=== PATIENT | female | born 1930 | race Caucasian/White ===

== ENCOUNTER 2016-09-20 13:19 | Observation (INO) | payer MEDICARE ==
[2016-09-20] VITALS (8 sets, daily range): BP systolic 107–146; BP diastolic 57–79; PULSE 46–65; RESP 15–24; O2SAT 97–100
[~2016-09-20] VITALS: Ht 165.1 cm; Wt 60.2 kg
--- NOTE | 2016-09-20 13:38 | ED.REPORT ---
HPI-Chest Pain 40 and Over Date of Service Sep 20, 2016 ED Provider: Alexis Nowak MD Pt is an 86 y/o female w/ a hx of paroxysmal a-fib, HTN, presenting to the ED with her son c/o 2 episodes of dizziness/lightheadedness which first began 1 week ago. 1 week ago she had an episode of near-syncope lasting 3 hours. Today, she experienced the same thing lasting a few hours and called her son to bring her to the ED. Her symptoms are exacerbated by standing up and result in near- syncope. She c/o associated fatigue, nausea. Pt denies SOB, fever, vomiting, abdominal pain, CP. She has been bradycardic previously after a hip surgery. She is on Lisinopril and Diltiazem. She is not on anticoagulants. Cardiology: [facility] Nursing Notes Stated Complaint: DIZZY/NAUSEA Chief Complaint: Dysrhythmia/Cardiac Nursing Notes Reviewed: Yes Allergies: Coded Allergies: No Known Allergies (Unverified , 09/20/16) Scheduled ([Curamin]) 1 TAB PO DAILY ([Shot In Eye]) 1 DOSE LEFT_EYE [id number] Aspirin (Aspirin) 325 Mg Tablet 325 MG PO DAILY Atorvastatin Calcium (Atorvastatin Calcium) 10 Mg Tablet 5 MG PO HS Bimatoprost (Lumigan) 45 Drop/2.5 Ml Ophsoln 1 DROP BOTH_EYES HS Cholecalciferol (Vitamin D3) (Vitamin D3) 400 Unit Tablet 400 UNIT PO DAILY Diltiazem ER (Cartia XT) 300 Mg Cap.er.24h 300 MG PO HS Flaxseed/Omega3,6,9/Fatty Acid (Flax Seed Oil 1,300 mg Softgel) 1 Each Capsule 1 EACH PO DAILY Levothyroxine (Levothyroxine) 125 Mcg Tablet 125 MCG PO BEFORE BREAKFAST Lisinopril (Lisinopril) 20 Mg Tablet 20 MG PO DAILY Magnesium Oxide (Magnesium Oxide) 400 Mg Tablet 400 MG PO DAILY [place]-3/Dha/Epa/Fish Oil (Fish Oil 1,000 mg Softgel) 1 Each Capsule 1 EACH PO DAILY Omeprazole (Omeprazole) 20 Mg Capsule.dr 20 MG PO DAILY BEFORE DINNER Oxybutynin Chloride ER (Oxybutynin Chloride ER) 10 Mg Tab.er.24 10 MG PO DAILY Pyridoxine (Vitamin B-6) 50 Mg Tablet 1 TAB PO DAILY Timolol Maleate (Timolol Maleate) 5 Ml Drops 1 DROP RIGHT_EYE QAM Scheduled PRN Polyethylene Glycol 3350 (Miralax) 17 Gm Powd.pack 17 GM PO DAILY PRN PRN For Constipation Sennosides (Senna) 8.6 Mg Tablet 8.6-17.2 MG PO HS PRN PRN For Constipation Sumatriptan (Imitrex) 25 Mg Tablet 100 MG PO DAILY PRN PRN MIGRAINE General Time Seen by MD: 13:37 Chief Complaint Other (lightheadedness) Hx Obtained From: Patient Arrived By: Walk-in Sudden in Onset?: No Onset Occurred: 1 week ago Symptom Duration: Intermittent Severity: Current: No pain currently Severity: Maximum: No pain Past Medical History Past Medical History Notes: Cardiology: [place] Past Medical History Hypertension Paroxysmal atrial fibrillation - not on anticoagulants GERD Arthritis in ankles and hips Past Surgical History R hip Left knee Appendectomy Smoking History Never Smoker Social History Alcohol Use: Denies alcohol use Ambulatory Status Independent Review of Systems Constitutional: Reports: Fatigue, Denies: Chills, Fever Respiratory: Denies: Shortness of breath Cardiovascular: Denies: Chest pain GI: Reports: Nausea, Denies: Abdominal pain, Vomiting Neurologic: Reports: Dizziness, Lightheaded Complete sys rev & neg: except as marked. Physical Exam Initial Vital Signs Vital Signs (First) Date Time Temp Pulse Resp B/P Pulse Ox O2 Delivery O2 Flow Rate FiO2 09/20/16 13:27 36.3 46 16 122/59 99 Room Air Initial VS: Reviewed, Vital signs abnormal Head / Eyes: Atraumatic, Normocephalic ENT: Mucous membranes moist, Conjunctiva normal, No scleral icterus Neck: Supple, Full range of motion Extremities: Vascular intact, Neuro intact, No swelling Skin: Warm, Dry, No cyanosis Neurologic: Alert, Oriented, Nonfocal Psychiatric: Mood/affect normal, Behavior normal, Normal thought content General/Constitutional: Awake, Alert, No acute distress, Cooperative, Not toxic appearing Respiratory / Chest: Breath sounds NL, Breath sounds = bilat, No respiratory distress, No rales, No rhonchi, No wheezing Cardiovascular: Heart sounds NL, No murmurs Heart Rate / Rhythm: Positive: Bradycardia (intermittently bradycardic into 40s ), Irregular rhythm Abdomen: Atraumatic, Soft, Non-tender Interpretation & Diagnostics Lab Results Interpretation Result Diagram: 09/20/16 1347 09/20/16 1347 Test 09/20/16 13:47 09/20/16 14:00 White Blood Count 9.7th/mm3 (3.8-10.1) Red Blood Count 4.62mil/mm3 (3.90-5.20) Hemoglobin 14.1g/dL (12.0-15.6) Hematocrit 41.5% (35.0-46.0) Mean Corpuscular Volume 89.8fL (81-100) Mean Corpuscular Hemoglobin 30.5pg (27.0-35.0) Mean Corpuscular Hemoglobin Concent 34.0% (32.0-37.0) Red Cell Distribution Width 12.9% (12.3-15.4) Platelet Count 256bil/L (150-400) Neutrophils (%) (Auto) 64.1% (40-74) Lymphocytes (%) (Auto) 24.7% (14-46) Monocytes (%) (Auto) 8.3% (4-12) Eosinophils (%) (Auto) 2.4% (0-5) Basophils (%) (Auto) 0.2% (0-3) Sodium Level 138mEq/L (134-144) Potassium Level 5.2mEq/L (3.5-5.2) Chloride Level 103mEq/L (97-108) Carbon Dioxide Level 16mmol/L (18-29) Blood Urea Nitrogen 21mg/dL (8-27) Creatinine 1.03mg/dL (0.57-1.00) Estimat Glomerular Filtration Rate 73mL/min (>59) Glucose Level 116mg/dL (60-99) Calcium Level 9.2mg/dL (8.5-10.1) Magnesium Level 2.0mg/dL (1.6-2.6) Total Bilirubin 0.3mg/dL (0.0-1.2) Aspartate Amino Transf (AST/SGOT) 20U/L (0-50) Alanine Aminotransferase (ALT/SGPT) 13U/L (0-32) Alkaline Phosphatase 85U/L (25-165) Troponin T < 0.010ug/L (0.0-0.011) Pro-B-Type Natriuretic Peptide 752.9pg/mL (0-738) Total Protein 7.5g/dL (6.4-8.4) Albumin 4.0g/dL (3.4-5.0) Hold Wong Top Tube Received (Received) Hold Purple Top Tube Received (Received) Hold [place] Top Tube Received (Received) ECG Interpretation ECG Interpretation: Sinus rhythm rate 66 PVCs T wave inversions isolated in V1 Time: 13:41 Interpreted by: ED physician Normal ECG Interpretation: No acute ischemic changes X-Ray Chest Interpretation Chest Xray Interpretation: IMPRESSION: No acute cardiopulmonary disease. Dictated by: Donte Stone M.D. on 09/20/2016 at 14:17 Approved by: Donte Stone M.D. on 09/20/2016 at 14:18 View: Portable, 1 view Interpretation / Wet Read by: Interpret - Radiologist CT Head Interpretation IMPRESSION: Mild microvascular atherosclerotic change in the deep white matter each hemisphere, expected for age, no source of current symptoms is seen. Dictated by: Jere Elder M.D. on 09/20/2016 at 16:38 Approved by: Jere Elder M.D. on 09/20/2016 at 16:39 Study: Head CT no contrast Interpretation / Wet Read by: Interpret - Radiologist Re-Eval/Medical Decision Med Decision/Clinical Course 86-year-old female history of paroxysmal atrial fibrillation on diltiazem thinning with intermittent dizziness and fatigue over the past week. Reports several hours of dizziness and fatigue 1 week ago. This recurred again today for several hours. On arrival she was bradycardic in the 30s and 40s at times up to the 50s. She was given 1 dose of atropine with improvement of heart rate into the 50s and 60s with minimal improvement symptoms. EKG sinus bradycardia. Blood pressure stable. Troponins negative. Discussed patient with cardiology Dr. Cordoba who recommended discontinuing diltiazem and disposition based on patient's comfort level. Patient requested be admitted to the hospital. She will be admitted with holding diltiazem and monitoring. Time of Eval: 15:13 Re-Evaluation/Progress Note: Pt rechecked after atropine. Not feeling better. HR improved. Discussed the national sales's recommendations. She would like to be admitted. Consultation #1: Referral / Consult Name: Jone Cordoba MD Consulted With: Cardiology Call Returned at: 14:58 Structures Mechanic: Agrees with eval, Agrees with plan Note: Recommends OK to admit for obs withholding dilt if patient wants to go home then that's OK. Would stop dilt if she was discharged. Consultation #2: Referral / Consult Name: Moshe Edwards MD Consulted With: Hospitalist Call Returned at: 15:51 Structures Mechanic: Will see patient, Agrees with eval, Agrees with plan, Accepts admit Counseled Regarding: Diagnosis, Lab results, Need for admission Discharge & Departure Primary Impression: Symptomatic bradycardia Additional Impression: Dizziness Disposition: ADMITTED TO HOSPITAL Discharge Condition All VS Reviewed: Yes Condition: Stable Referrals: Marla Schaefer DO (PCP) Jone Cordoba MD Crit Care Except Billable Proc Time Spent: 30-74 minutes Services Performed: Patient management by me, Time spent at bedside, Reviewing test results, Reviewing imaging, Discussing patient care, Documentation in record, Time with fam/surrogate Critical Care Notes: 30 minutes Scribe Attestation Portions of this note were transcribed by Mu Uribe. I, Dr. Nowak personally performed the history, physical exam and medical decision-making; I reviewed and confirmed the accuracy of the information in the transcribed note. copies to: Marla Schaefer DO; Jone Cordoba MD, Ben M MD Sep 20, 2016 13:38 MU URIBE Sep 20, 2016 13:41
[2016-09-20 14:01] LABS: BASOPHILS % (AUTO) 0.2 % (0-3); EOSINOPHILS % (AUTO) 2.4 % (0-5); MONOCYTES % (AUTO) 8.3 % (4-12); Mean Corpuscular Hemoglobin 30.5 pg (27.0-35.0); Mean Corpuscular Volume 89.8 fL (81-100); NEUTROPHILS % (AUTO) 64.1 % (40-74); Platelet Count 256 bil/L (150-400)
[2016-09-20] MEDS ORDERED: Atropine 1 mg/10 mL (Code) Syringe IVPUSH PRN (14:15)
--- NOTE | 2016-09-20 14:19 | DRSVH ---
PROCEDURE: X-RAY CHEST ONE VIEW, PORTABLE ([id number]) INDICATIONS: 86 year-old female with chest pain and dizziness. TECHNIQUE: One view of the chest was acquired. COMPARISON: [facility], CR, XR CHEST 1VW, 02/18/2015, 10:10. FINDINGS: Surgical changes and devices: None. Lungs and pleura: No pleural effusions or pneumothorax. Lungs are clear. Mediastinum: Mediastinal contours appear normal. Heart size is normal. There is aortic atheroscler osis. Bones and chest wall: No suspicious bony lesions. Overlying soft tissues appear unremarkable. IMPRESSION: No acute cardiopulmonary disease. Dictated by: Donte Stone M.D. on 09/20/2016 at 14:17 Approved by: Donte Stone M.D. on 09/20/2016 at 14:18
[2016-09-20 14:29] LABS: TROPONIN T < 0.010 ug/L (0.0-0.011)
[2016-09-20] MEDS ORDERED: 0.9% Sodium Chloride 500 ML IV ONE (14:55)
[2016-09-20] MEDS ORDERED: DILT300C25 PO (15:54)
[2016-09-20] MEDS ORDERED: [UNRECOGNIZED DRUG - REMARK] LEFT_EYE (15:54)
[2016-09-20] MEDS ORDERED: MAGN400T4 PO (15:54)
[2016-09-20] MEDS ORDERED: PYR50 PO (15:54)
[2016-09-20] MEDS ORDERED: CHOL400T PO (15:54)
[2016-09-20] MEDS ORDERED: LISI-567 PO (15:54)
[2016-09-20] MEDS ORDERED: OMEG-38 PO (15:54)
[2016-09-20] MEDS ORDERED: FLAX1CAP4 PO (15:54)
[2016-09-20] MEDS ORDERED: OXYB10TA PO (15:54)
[2016-09-20] MEDS ORDERED: OMEP20CA11 PO (15:54)
[2016-09-20] MEDS ORDERED: SENN-133 PO (15:54)
[2016-09-20] MEDS ORDERED: LEVO125T6 PO (15:54)
[2016-09-20] MEDS ORDERED: ATOR10TA66 PO (15:54)
[2016-09-20] MEDS ORDERED: POLY17PO6 PO (15:54)
[2016-09-20] MEDS ORDERED: CURAMIN PO (15:54)
[2016-09-20] MEDS ORDERED: TIMO5DRO5 RIGHT_EYE (15:54)
[2016-09-20] MEDS ORDERED: ASPI325T32 PO (15:54)
[2016-09-20] MEDS ORDERED: IMI25 PO (15:54)
[2016-09-20] MEDS ORDERED: BIMA2.5D5 BOTH_EYES (15:54)
[2016-09-20] MEDS ORDERED: Ondansetron 2 mg/mL 2 mL Inj IVPUSH PRN ×2 (16:05→16:25)
[2016-09-20] MEDS ORDERED: Alum-Mag Hydrox-Simeth 30 mL Suspension PO PRN ×2 (16:05→16:25)
[2016-09-20] MEDS ORDERED: 0.9% Sodium Chloride 1,000 ML IV SCH (16:21)
[2016-09-20] MEDS: Timolol 0.5% 5 mL Ophthalmic Solution RIGHT_EYE SCH (16:25)
[2016-09-20] MEDS ORDERED: Polyethylene Glycol (PEG) 17 Gm Powder PO PRN (16:25)
--- NOTE | 2016-09-20 16:40 | DRSVH ---
PROCEDURE: CT BRAIN WITHOUT CONTRAST ([id number]) INDICATIONS: dizziness TECHNIQUE: Noncontrast 4.5 mm thick angled axial sections acquired from the foramen magnum to the vertex, with c oronal reformats. COMPARISON: [facility], CT, BRAIN W/O CONTRAST, 11/03/2008, 11:39. FINDINGS: Image quality: Excellent. CSF spaces: Basal cisterns are patent. No extra-axial fluid collections. The ventricles are symmet tyshawn in size and shape. Brain: No intracranial bleeds or masses. There is cerebral volume loss for age, with resultant vent ricular and sulcal prominence. There are periventricular and deep white matter chronic small vessel ischemic changes. There is intracranial internal carotid artery atherosclerosis. Skull and face: Calvarium and visualized facial bones appear intact, without suspicious lesions. Sinuses: Visualized sinuses and mastoids are clear. IMPRESSION: Mild microvascular atherosclerotic change in the deep white matter each hemisphere, expec dougie for age, no source of current symptoms is seen. Dictated by: Jere Elder M.D. on 09/20/2016 at 16:38 Approved by: Jere Elder M.D. on 09/20/2016 at 16:39
--- NOTE | 2016-09-20 16:49 | PCM.HPMED ---
Subjective Date of Service Sep 20, 2016 Primary Provider: Admitting Physician: Moshe Edwards MD Primary Care Physician: Clinic,[facility] Residency Attending Physician: Moshe Edwards MD Admit Status: From the Emergency Department, 23-Hour Observation, PSYCHIATRIC Telemetry Chief Complaint: Lightheaded today and about a week ago. History of Present Illness: This is a pleasant 86-year-old female with history of paroxysmal atrial fibrillation on chronic aspirin and diltiazem 300 mg a day for rate control. She developed a episode of being lightheaded about a week ago. This was when she was outside and it was somewhat hot. She became lightheaded and thought she might pass out or back into the house and rested and felt better. She had no other problems rest of the week and then today was outside again for the first time in about a week using the weedeater. After about 15 minutes and the son she became very lightheaded and dizzy and again thought she might pass out. She would also lay down but continued to feel poorly. She has descended to the emergency department. She denies any chest pain. No recent URI symptoms including rhinorrhea cough or sore throat. No orthopnea or edema. No discernible palpitations. In the emergency department she was found to have atrial fibrillation with episodes of bradycardia into the 30s and 40s. She has no history of known rate control issues or bradycardia. She does have a history of upper tension but has not had headaches recently. She denies any calf pain or swelling. No diarrhea or blood per rectum. She was given 1 dose of atropine in the ER now does have very dry mouth. Before that though she denied feeling dehydrated, or thirsty. She has had normal oral intake recently. No diarrhea. Review of Systems: She denies any visual changes. No numbness weakness of arms or legs. No skin rash. No fevers or chills. No cough or dyspnea on exertion. All else reviewed and otherwise unremarkable except as noted in history of present illness Allergies Coded Allergies: No Known Allergies (Unverified , 09/20/16) Home Medications Scheduled ([Curamin]) 1 TAB PO DAILY ([Shot In Eye]) 1 DOSE LEFT_EYE [id number] Aspirin (Aspirin) 325 Mg Tablet 325 MG PO DAILY Atorvastatin Calcium (Atorvastatin Calcium) 10 Mg Tablet 5 MG PO HS Bimatoprost (Lumigan) 45 Drop/2.5 Ml Ophsoln 1 DROP BOTH_EYES HS Cholecalciferol (Vitamin D3) (Vitamin D3) 400 Unit Tablet 400 UNIT PO DAILY Diltiazem ER (Cartia XT) 300 Mg Cap.er.24h 300 MG PO HS Flaxseed/Omega3,6,9/Fatty Acid (Flax Seed Oil 1,300 mg Softgel) 1 Each Capsule 1 EACH PO DAILY Levothyroxine (Levothyroxine) 125 Mcg Tablet 125 MCG PO BEFORE BREAKFAST Lisinopril (Lisinopril) 20 Mg Tablet 20 MG PO DAILY Magnesium Oxide (Magnesium Oxide) 400 Mg Tablet 400 MG PO DAILY Richards-3/Dha/Epa/Fish Oil (Fish Oil 1,000 mg Softgel) 1 Each Capsule 1 EACH PO DAILY Omeprazole (Omeprazole) 20 Mg Capsule.dr 20 MG PO DAILY BEFORE DINNER Oxybutynin Chloride ER (Oxybutynin Chloride ER) 10 Mg Tab.er.24 10 MG PO DAILY Pyridoxine (Vitamin B-6) 50 Mg Tablet 1 TAB PO DAILY Timolol Maleate (Timolol Maleate) 5 Ml Drops 1 DROP RIGHT_EYE QAM Scheduled PRN Polyethylene Glycol 3350 (Miralax) 17 Gm Powd.pack 17 GM PO DAILY PRN PRN For Constipation Sennosides (Senna) 8.6 Mg Tablet 8.6-17.2 MG PO HS PRN PRN For Constipation Sumatriptan (Imitrex) 25 Mg Tablet 100 MG PO DAILY PRN PRN MIGRAINE PMH Paroxysmal atrial fibrillation Essential hypertension Gastroesophageal reflux Osteoarthritis Glaucoma 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 No distress. Fluent speech. Normal affect. Normal skull. Normal nose and ears. Anicteric sclera, symmetric pupils Oropharynx is unremarkable, no facial droop. Neck is supple, normal thyroid. No adenopathy. Lungs are clear, normal effort rate. Heart is irregular without murmur gallop or rub., Rate in the 50s. Abdomen soft, nondistended or tender. Extremities are free of pedal edema. Good radial and pedal pulses. Skin is free of rash, lesions. No petechiae or ecchymosis. Joints are grossly normal. Cranial nerves are grossly normal. Motor strength is normal in all extremities. Normal muscular tone. Lab and Diagnostics Result Diagram: 09/20/16 1347 09/20/16 1347 X-Rays, CTs and MRIs Chest x-ray is unremarkable. Assessment & Plan Paroxysmal atrial fibrillation with bradycardia, POA and active. We will hold diltiazem and watch her in observation on telemetry tonight. If she improves with washout will likely discharge tomorrow with either no diltiazem or reduced dose of diltiazem. Essential hypertension, POA and active. Hold diltiazem but continue lisinopril. Gastroesophageal reflux, POA and stable. Usual medications. Glaucoma and left eye central vein occlusion, POA and active. Usual eyedrops. She is full resuscitation She is admitted observation status with anticipated length of stay of one night. Pain Evaluation: Adequate Pain Control Resuscitation Status: CPR: Attempt Resuscitation Time spent 40 minutes Moshe Edwards MD Sep 20, 2016 16:49
--- NOTE | 2016-09-20 17:08 | NUR ---
Social Work: Initial Assessment D: Per EMR review, pt is an 86 year old female admitted for symptomatic bradycardia. Pt is Medicare with [employer] Supplement; pt has no LTC or VA benefits. PCP is through the [facility]. NOK is Jeff Cain, son, . Advanced directives completed- PURCHASE ANALYST requested copy for chart. Readmit score not entered at this time. PURCHASE ANALYST met with the patient at bedside. Sw role explained, contact information and d/c planning checklist provided. See initial assessment. Pt lives [place] [address], alone, in a single story home with ramp access. Pt is completely I with ADLs, ambulation and all self-care. Pt owns a cane in which she uses on occasion. Pt continues to drive and has never had HH or skilled rehab/nursing. Pt anticipates being able to discharge home tomorrow and states her family will be transporting her home when she is ready. Pt is receptive to discharge planning if needs arise. A: Pt who is I at baseline. P: Evolving; Anticipate discharge home via POV. PURCHASE ANALYST to continue to follow to assess for discharge needs. TIMUR Underwood Addendum: 09/20/16 at 1712 by LOUIS MEJIA Amended: Links added.
--- NOTE | 2016-09-20 17:15 | NUR ---
Arrived from ED to [id number] at 1630, A/O and in good spirits. Stood assisted to scale, c/o feeling lightheaded, and a postural drop in her BP was noted. She states that she has been feeling dizzi for about a week. Denies nausea or discomfort. Appears in no distress. RA sats are 98-100%, RR 16, current BP 124/68, Sinus bradycardia with frequent PVCs, HR 55. Afebrile. NS infusing at 50ml/hr to right AC IV site. Voided via bedpan due to dizziness. States she lives alone and indicates that she is independent with her ADLs, and still driving. She seems much younger than her age of 86. Her son is aware that she is here, and she has been talking with family on her phone. Hopeful for discharge tomorrow.
[2016-09-20] MEDS: Heparin 5,000 Unit/mL Inj SUBQ SCH ×2 (18:20→23:41)
[2016-09-20 18:56] LABS: APPEARANCE,URINE CLEAR (CLEAR,HAZY); COLOR,URINE STRAW (YELLOW); OCCULT BLOOD,URINE NEGATIVE (NEGATIVE); PH,URINE 5.5 (5.0-8.0); UROBILINOGEN,URINE NORMAL (NORMAL)
[2016-09-21 02:27] LABS: BASOPHILS % (AUTO) 0.5 % (0-3); EOSINOPHILS % (AUTO) 3.1 % (0-5); Mean Corpuscular Hemoglobin 30.6 pg (27.0-35.0); Mean Corpuscular Volume 90.3 fL (81-100); NEUTROPHILS % (AUTO) 50.7 % (40-74); Platelet Count 212 bil/L (150-400)
[2016-09-21 02:49] LABS: Magnesium 1.9 mg/dL (1.6-2.6)
[2016-09-21 03:17] VITALS: BP 105/87; PULSE 68; RESP 17; O2SAT 97
--- NOTE | 2016-09-21 05:21 | NUR ---
Telemetry Pt alert and oriented x3. Forgetful at times. SHOSHONE-PAIUTE. C/o right shoulder ache/sore. Tylenol was effective for it. Telemetry SR with frequent pvcs. Frequent Trigeminal and Bigeminal PVCS noted. Heart mostly in 50s to 60s. Occasional heart rate down to 40s (non-sustained). Pt asymptomatic. MD aware of ectopy. Pt denies any discomfort or chest pain. She reports mild dizziness at times when getting up. SBA to BSC. Pt calls staff for assistance.
[2016-09-21 05:54] VITALS: PULSE 63
[2016-09-21] MEDS ORDERED: Pantoprazole 40 mg ER24 Tablet PO SCH (06:30)
[2016-09-21] MEDS: Heparin 5,000 Unit/mL Inj SUBQ SCH (09:07)
[2016-09-21] MEDS: Timolol 0.5% 5 mL Ophthalmic Solution RIGHT_EYE SCH (09:07)
[2016-09-21 09:11] VITALS: BP 168/98; PULSE 72; RESP 17; O2SAT 98
[2016-09-21 10:11] VITALS: PULSE 68
--- NOTE | 2016-09-21 10:41 | PCM.DIMED ---
Discharge Instructions Date of Service Sep 21, 2016 Dates of Hospitalization Sep 20, 2016 at 15:56 Discharge Diagnosis Discharge Diagnosis Orthostatic hypotension Symptomatic bradycardia Medication Instructions Additional med instructions You should stop taking the medication diltiazem which was used for your atrial fibrillation. You are not in atrial fibrillation at this time. Diet Discharge Diet: No restrictions Activity Discharge Activity: Other (observe caution when you exert yourself or are out in the hot sun. Keep up good fluid intake.) Patient Instructions Patient Instructions You should report any more episodes of feeling faint to your doctor in 1 week, follow-up visit. We hope that stopping the diltiazem will stop these episodes. If not your doctor will send you back to Dr. Cordoba in the cardiology clinic. Follow-up Provider: [facility] Follow-up with PCP in: 1 week (to check blood pressure and heart rate can review your symptoms off of diltiazem.) Jae Calhoun MD Sep 21, 2016 10:41
--- NOTE | 2016-09-21 10:43 | NUR ---
Social Work: Discharge/Multidisciplinary Rounds D: Pt discussed in multidisciplinary rounds. Pt is medically stable for discharge home today. Capacity for self-care and d/c needs discussed; no concerns or barriers identified. Pt lives alone but has good support from her son who lives nearby. POKER IN met with the patient at bedside to confirm discharge plan. Pt agrees with the plan to d/c home. Pt identifies no needs and states her son is coming to pick her up. EMR reviewed; no sw needs or barriers identified at this time. A: Pt who is I at baseline. P: Pt to discharge home via POV and no sw needs. TIMUR Underwood
--- NOTE | 2016-09-21 11:00 | NUR ---
Case Management: Provided Medicare KEENAN with explanation at 0925- signed orginal to chart, copy to patient. Provided Medicare drug info brochure as well. Diaz Mata RN
--- NOTE | 2016-09-21 11:01 | NUR ---
Orthos Layin/65 HR 71 Sittin/56 HR 66 Standin/142 HR 63, slight lightheadedness, no dizziness
--- NOTE | 2016-09-21 11:57 | NUR ---
Discharge Pt left at 1200 with grand daughter via private car. Pt had walked the hallway prior to leaving and stated no dizziness but some light headedness. She walked the dennis w/ FWW and steady gait. Orthos done prior and MD aware of results. All discharge instructions gone over and understood, changes in medication understood, follow up apts made. All belongings taken with. IV and tele removed. All questions answered.
--- NOTE | 2016-09-21 16:18 | PCM.DC.MED ---
Discharge Summary Date of Service Sep 21, 2016 Dates of Hospitalization Date of Hospital Admission Sep 20, 2016 at 15:56 Date of Discharge: Sep 21, 2016 Providers: Admitting Physician: Moshe Edwards MD Primary Care Physician: Juan Ramon,DANIE Residency Attending Physician: Jae Calhoun MD Diagnosis at Time of Discharge Diagnosis at Time of Discharge Orthostatic hypotension Symptomatic bradycardia Procedures XRay, CTs & MRIs Chest x-ray is unremarkable. ECG 12 Lead 09/20/16 at 13:38 Sinus bradycardia with bigeminal PVCs. no acute ST T-wave changes Brief History This is a pleasant 86-year-old female with history of paroxysmal atrial fibrillation on chronic aspirin and diltiazem 300 mg a day for rate control. She developed a episode of being lightheaded about a week ago. This was when she was outside and it was somewhat hot. She became lightheaded and thought she might pass out or back into the house and rested and felt better. She had no other problems rest of the week and then today was outside again for the first time in about a week using the [employer]. After about 15 minutes and the son she became very lightheaded and dizzy and again thought she might pass out. She would also lay down but continued to feel poorly. She has descended to the emergency department. She denies any chest pain. No recent URI symptoms including rhinorrhea cough or sore throat. No orthopnea or edema. No discernible palpitations. In the emergency department she was found to have atrial fibrillation with episodes of bradycardia into the 30s and 40s. She has no history of known rate control issues or bradycardia. She does have a history of upper tension but has not had headaches recently. She denies any calf pain or swelling. No diarrhea or blood per rectum. She was given 1 dose of atropine in the ER now does have very dry mouth. Before that though she denied feeling dehydrated, or thirsty. She has had normal oral intake recently. No diarrhea. Hospital Course Actively managed problems: #. Orthostatic hypotension and presyncope, present on admission. Active. These symptoms did not recur during 24 hours of hospital observation. There is no dysrhythmia noted and no atrial fibrillation. She continued to show coupled PVCs but no sustained. Symptoms seem most likely related to her bradycardia particularly in settings of activity or heat induced vasodilation. Since she is not in atrial fibrillation it seems appropriate to discontinue diltiazem and observe. The patient was counseled that if symptoms recur she must be reevaluated, in case the presyncopal symptoms could be related to episodic A. fib for vtk-forouppov-ffxcmum sinus dysfunction. #. Paroxysmal atrial fibrillation with bradycardia, POA and active. Discharge on no diltiazem. If A. fib recurs then she should return to Dr. Cordoba in cardiology. #. Essential hypertension, POA and active. Blood pressure was borderline high prior to discharge, possibly due to discontinuation of diltiazem. She was continued on lisinopril. In light of her presyncopal symptoms, we elected not to initiate a second antihypertensive. She should follow-up within 1 week at primary care provider to assess need for additional antihypertensives, presuming her orthostatic hypotension and presyncope did not recur. Stable problems: Gastroesophageal reflux, POA and stable. Usual medications. Glaucoma and left eye central vein occlusion, POA and active. Usual eyedrops. . Exam Vital Signs (Last) Date Time Temp Pulse Resp B/P Pulse Ox O2 Delivery O2 Flow Rate FiO2 09/21/16 10:11 68 09/21/16 09:11 36.7 17 168/98 98 Room Air Exam General: Generally healthy-appearing elderly woman in no acute distress HEENT: sclerae anicteric, oral mucosa moist Neck: no JVD Chest: clear to auscultation Cardiac: S1S2, premature beats, no murmur Abdomen: BS normal, non-tender Extremities: No edema Neuro: Alert and generally oriented, cranial nerves symmetric, motor strength and coordination grossly normal Test 09/20/16 13:47 09/20/16 14:00 09/20/16 18:32 09/21/16 02:20 Troponin T < 0.010ug/L (0.0-0.011) Pro-B-Type Natriuretic Peptide 752.9pg/mL (0-738) Hold Wong Top Tube Received (Received) Hold Purple Top Tube Received (Received) Hold Oakley Top Tube Received (Received) Urine Color Straw (YELLOW) Urine Appearance Clear (CLEAR,HAZY) Urine pH 5.5 (5.0-8.0) Urine Specific Morris 1.005 (1.003-1.035) Urine Protein Negativemg/dL (NEG,TRACE) Urine Glucose (UA) Negativemg/dL (NEGATIVE) Urine Ketones Negativemg/dL (NEGATIVE) Urine Occult Blood Negative (NEGATIVE) Urine Nitrite Negative (NEGATIVE) Urine Bilirubin Negative (NEGATIVE) Urine Urobilinogen Normalmg/dL (NORMAL) Urine Leukocyte Esterase Trace (NEGATIVE) Urine RBC 0-2/hpf (0-2) Urine WBC 0-5/hpf (0-5) Urine Epithelial Cells Occasional/hpf (NONE-MOD) Urine Crystals None seen (NONE SEEN) Urine Bacteria Few/hpf (NONE-FEW) Urine Hyaline Casts None/lpf (NONE) Urine Granular Casts None seen (NONE SEEN) Urine Waxy Casts None seen (NONE SEEN) Urine Red Blood Cell Casts None seen (NONE SEEN) Urine White Blood Cell Casts None seen (NONE SEEN) Urine Mucus None seen (None Seen) Urine Trichomonas None seen (NONE SEEN) Urine Yeast None (NONE SEEN) Urinalysis Comment None Urine Culture Reflexed Indicated White Blood Count 7.8th/mm3 (3.8-10.1) Red Blood Count 4.12mil/mm3 (3.90-5.20) Hemoglobin 12.6g/dL (12.0-15.6) Hematocrit 37.2% (35.0-46.0) Mean Corpuscular Volume 90.3fL (81-100) Mean Corpuscular Hemoglobin 30.6pg (27.0-35.0) Mean Corpuscular Hemoglobin Concent 33.9% (32.0-37.0) Red Cell Distribution Width 12.5% (12.3-15.4) Platelet Count 212bil/L (150-400) Neutrophils (%) (Auto) 50.7% (40-74) Lymphocytes (%) (Auto) 37.6% (14-46) Monocytes (%) (Auto) 8.0% (4-12) Eosinophils (%) (Auto) 3.1% (0-5) Basophils (%) (Auto) 0.5% (0-3) Sodium Level 138mEq/L (134-144) Potassium Level 4.3mEq/L (3.5-5.2) Chloride Level 106mEq/L (97-108) Carbon Dioxide Level 21mmol/L (18-29) Blood Urea Nitrogen 18mg/dL (8-27) Creatinine 0.95mg/dL (0.57-1.00) Estimat Glomerular Filtration Rate 80mL/min (>59) Glucose Level 104mg/dL (60-99) Calcium Level 8.7mg/dL (8.5-10.1) Magnesium Level 1.9mg/dL (1.6-2.6) Total Bilirubin 0.2mg/dL (0.0-1.2) Aspartate Amino Transf (AST/SGOT) 16U/L (0-50) Alanine Aminotransferase (ALT/SGPT) 10U/L (0-32) Alkaline Phosphatase 70U/L (25-165) Total Protein 6.4g/dL (6.4-8.4) Albumin 3.5g/dL (3.4-5.0) Discharge Medications Discharge Medications ([Curamin]) 1 TAB PO DAILY (Reported) ([Shot In Eye]) 1 DOSE LEFT_EYE [id number] (Reported) Aspirin (Aspirin) 325 Mg Tablet 325 MG PO DAILY (Reported) Atorvastatin Calcium (Atorvastatin Calcium) 10 Mg Tablet 5 MG PO HS (Reported) Bimatoprost (Lumigan) 45 Drop/2.5 Ml Ophsoln 1 DROP BOTH_EYES HS (Reported) Cholecalciferol (Vitamin D3) (Vitamin D3) 400 Unit Tablet 400 UNIT PO DAILY ( Reported) Flaxseed/Omega3,6,9/Fatty Acid (Flax Seed Oil 1,300 mg Softgel) 1 Each Capsule 1 EACH PO DAILY (Reported) Levothyroxine (Levothyroxine) 125 Mcg Tablet 125 MCG PO BEFORE BREAKFAST ( Reported) Lisinopril (Lisinopril) 20 Mg Tablet 20 MG PO DAILY (Reported) Magnesium Oxide (Magnesium Oxide) 400 Mg Tablet 400 MG PO DAILY (Reported) [place]-3/Dha/Epa/Fish Oil (Fish Oil 1,000 mg Softgel) 1 Each Capsule 1 EACH PO DAILY (Reported) Omeprazole (Omeprazole) 20 Mg Capsule.dr 20 MG PO DAILY BEFORE DINNER (Reported ) Oxybutynin Chloride ER (Oxybutynin Chloride ER) 10 Mg Tab.er.24 10 MG PO DAILY ( Reported) Pyridoxine (Vitamin B-6) 50 Mg Tablet 1 TAB PO DAILY (Reported) Timolol Maleate (Timolol Maleate) 5 Ml Drops 1 DROP RIGHT_EYE QAM (Reported) As needed Polyethylene Glycol 3350 (Miralax) 17 Gm Powd.pack 17 GM PO DAILY PRN PRN For Constipation (Reported) Sennosides (Senna) 8.6 Mg Tablet 8.6-17.2 MG PO HS PRN PRN For Constipation ( Reported) Sumatriptan (Imitrex) 25 Mg Tablet 100 MG PO DAILY PRN PRN MIGRAINE (Reported) Additional med instructions You should stop taking the medication diltiazem which was used for your atrial fibrillation. You are not in atrial fibrillation at this time. Followup Plan Discharge Diet: No restrictions Discharge Activity: Other (observe caution when you exert yourself or are out in the hot sun. Keep up good fluid intake.) Patient Instructions You should report any more episodes of feeling faint to your doctor in 1 week, follow-up visit. We hope that stopping the diltiazem will stop these episodes. If not your doctor will send you back to Dr. Cordoba in the cardiology clinic. Follow-up Provider: [facility] Follow-up with PCP in: 1 week (to check blood pressure and heart rate can review your symptoms off of diltiazem.) Time spent 25 minutes copies to: Jone Cordoba MD, Jeffrey W MD Sep 21, 2016 10:41
== END 2016-09-21 11:55 | disposition home or self-care (01) ==
LOC: SED 13:19 → PCC 15:56
PROVIDERS: ADMIT Hospitalist; ATTEND Internal Medicine
DX: I48.0 Paroxysmal atrial fibrillation (principal); R00.1 Bradycardia, unspecified; I95.1 Orthostatic hypotension; H40.9 Unspecified glaucoma; K21.9 Gastro-esophageal reflux disease without esophagitis; R42 Dizziness and giddiness; Z79.82 Long term (current) use of aspirin; Z79.899 Other long term (current) drug therapy
CPT/HCPCS: 36415; 70450; 71010; 80053; 81000; 83735; 83880; 84484; 85025; 87086; 87088; 93005; 96361; 96374; 99291; G0378; J0461; J1644; J7030; J7040